=== PATIENT | female | born 1945 | race Caucasian/White ===

== ENCOUNTER 2024-06-23 06:44 | Emergency (ER) | payer OTHER ==
[~2024-06-23] VITALS: Ht 154.9 cm; Wt 66.2 kg
[2024-06-23] MEDS: IV NS 0.9% 1,000 ML BAG IV ONE (07:00)
[2024-06-23 07:23] LABS: BASOPHILS # (AUTO) 0.1 K/uL (0.0-0.2); BASOPHILS % (AUTO) 0.7 % (0.0-2.0); EOSINOPHILS # (AUTO) 0.1 K/uL (0.0-0.7); EOSINOPHILS % (AUTO) 1.1 % (0.0-6.0); HEMATOCRIT 36 % (33-45); HEMOGLOBIN 12.3 g/dL (11.5-14.8); LYMPHOCYTES % (AUTO) 12.1 % (20.0-44.0); MEAN CORPUSCULAR HEMOGLOBIN 32 PG (26.0-33.0); MEAN CORPUSCULAR HGB CONC 34 g/dl (31.0-36.0); MEAN CORPUSCULAR VOLUME 93 fL (82-100); MONOCYTES # (AUTO) 0.9 K/uL (0.1-1.30); MONOCYTES % (AUTO) 10.9 % (2.0-12.0); NEUTROPHILS # (AUTO) 6.2 K/uL (1.8-8.9); NEUTROPHILS % (AUTO) 75.2 % (43.0-81.0); PLATELET COUNT (AUTO) 183 K/uL (150-450); RED BLOOD CELL COUNT(AUTO) 3.87 MIL/uL (4.0-5.2); RED CELL DISTRIBUTION WIDTH 13.2 % (11.5-15.0); WHITE BLOOD COUNT (AUTO) 8.2 K/uL (4.3-11.0)
[2024-06-23 07:41] LABS: LACTIC ACID 0.8 mmol/L (0.4-2.0)
[2024-06-23 07:44] LABS: ALBUMIN 4.1 g/dL (3.4-5.0); BILIRUBIN,DIRECT 0.2 mg/dL (0.0-0.2); BILIRUBIN,TOTAL 0.8 mg/dL (0.2-1.0); CALCIUM, SERUM 9.8 mg/dL (8.5-10.1); CREATININE 0.9 mg/dL (0.6-1.3); POTASSIUM 4.2 mmol/L (3.5-5.1); TOTAL PROTEIN, SERUM 7.9 g/dL (6.4-8.2)
[2024-06-23] MEDS ORDERED: BENZ-13 PO (08:27)
[2024-06-23] MEDS ORDERED: AZIT250T PO (08:27)
[2024-06-23 08:42] VITALS: BP 112/62; TEMP 98.6; O2SAT 98
== END 2024-06-23 08:43 | disposition home or self-care (01) ==
LOC: ER 06:46
DX: R04.2 Hemoptysis (principal); J40 Bronchitis, not specified as acute or chronic; E03.9 Hypothyroidism, unspecified; J18.9 Pneumonia, unspecified organism; R07.9 Chest pain, unspecified; Z20.822 Contact with and (suspected) exposure to COVID-19
CPT/HCPCS: 99285; 96360; 71045; 87426; 93005; 84145; 85025; 80048; 87040 ×2; 87804; 83605; 80076; 85378; 36415; J7030

== ENCOUNTER 2025-01-10 17:41 | Emergency (ER) | payer MEDICARE, OTHER ==
[~2025-01-10] VITALS: Ht 162.6 cm; Wt 58.1 kg
[~2025-01-10 17:41] MED LIST: AZIT250T PO; BENZ-13 PO
[2025-01-10] MEDS ORDERED: MUPI22OI7 TP (18:33)
[2025-01-10 18:56] VITALS: BP 115/70; TEMP 98.5; O2SAT 99
== END 2025-01-10 18:57 | disposition home or self-care (01) ==
LOC: ER 17:46
DX: R10.20 Pelvic and perineal pain unspecified side (principal); Z88.0 Allergy status to penicillin; Z88.1 Allergy status to other antibiotic agents